=== PATIENT | female | born 1955 | race Caucasian/White ===

== ENCOUNTER 2023-01-28 18:32 | Day surgery (SDC) | payer MEDICARE, MEDICAID, SELFPAY ==
[2023-01-23 13:35] VITALS: BMI 32.6
--- NOTE | 2023-01-27 12:11 | HO.ANESPROP2 ---
Documented by User: Octavia Boggs NP 01/27/23 12:12 HPI - Anesthesia Eval Consult details Narrative: 67yo F for Left medial rectus Eye Muscle Recession PCP cleared *Multiple Med Allergies* PMFSH Past Medical History Medical History (Updated 01/23/23 @ 13:08 by Rupal Smith, RN) Anxiety disorder Asthma Chronic sinusitis Dependent on walker for ambulation Depression DM type 2 (diabetes mellitus, type 2) Essential tremor GERD (gastroesophageal reflux disease) HTN (hypertension) Hyperlipidemia Hypothyroid Obesity Rosacea TIA (transient ischemic attack) Surgical History Surgical History (Updated 01/23/23 @ 13:08 by Rupal Smith, SHREE) History of sinus surgery Hx of adenoidectomy Social History Social History Patient Tobacco Use Status: Never used Tobacco Are you DNR?: No Advance Directives: No Advance Directives Information Provided: Yes (HCP) Advance Directives on File: No Recently lost weight without trying: No Eating poorly because of decreased appetite: No Patient : No Meds Allergies Allergy/AdvReac Type Severity Reaction Status Date / Time Sulfa (Sulfonamide Allergy Mild HIVES Verified 01/28/23 13:35 Antibiotics) [SULFA(SULFONAMIDE ANTIBIOTICS)] doxycycline [DOXYCYCLINE] Allergy Unknown UNKNOWN Verified 01/28/23 13:35 erythromycin base Allergy Unknown UNKNOWN Verified 01/28/23 13:35 [From ERYTHROCIN] fexofenadine [From MELL] Allergy Unknown UNKNOWN Verified 01/28/23 13:35 gabapentin [From NEURONTIN] Allergy Unknown sedation Verified 01/28/23 13:35 metoclopramide [From REGLAN] Allergy Unknown tremors Verified 01/28/23 13:35 risperidone [From RISPERDAL] Allergy Unknown UNKNOWN Verified 01/28/23 13:35 aripiprazole [From Abilify] Allergy Excessively Verified 01/23/23 13:12 energized cariprazine [From Vraylar] Allergy Elevated Verified 01/23/23 13:12 Blood Sugar Levels fluoxetine Allergy sedation Verified 01/23/23 13:12 pseudoephedrine Allergy Unknown Verified 01/23/23 13:12 [From Mell-D] Home Medications Medication Instructions Recorded Confirmed Last Taken Type albuterol sulfate 90 mcg/actuation 2 puff inhalation QID PRN wheezing 01/23/23 01/23/23 Unknown History aerosol inhaler (Ventolin HFA) amlodipine 5 mg tablet 1 tab PO DAILY 01/23/23 01/23/23 01/28/23 History aspirin 81 mg tablet,delayed 1 tab PO DAILY 01/23/23 01/23/23 Unknown History release atorvastatin 20 mg tablet 1 tab PO DAILY 01/23/23 01/23/23 Unknown History biotin 1 mg tablet 1 tab PO DAILY 01/23/23 01/23/23 Unknown History cetirizine 10 mg tablet 1 tab PO DAILY PRN sinusitis 01/23/23 01/23/23 Unknown History clonazepam 0.5 mg tablet 1 tab PO BID PRN anxiety 01/23/23 01/23/23 01/28/23 History fluticasone propionate 50 2 spray intranasal DAILY 01/23/23 01/23/23 Unknown History mcg/actuation nasal spray,suspension glipizide 2.5 mg tablet, extended 1 - 2 tab PO DAILY 01/23/23 01/23/23 Unknown History release 24 hr ketoprofen 75 mg capsule 75 mg PO BID 01/23/23 01/23/23 Unknown History levomilnacipran 120 mg capsule,24 1 cap PO QAM 01/23/23 01/23/23 Unknown History hr,extended release (Fetzima) levothyroxine 75 mcg tablet 1 tab PO DAILY 01/23/23 01/23/23 01/28/23 History lisinopril 20 mg tablet 1 tab PO DAILY 01/23/23 01/23/23 Unknown History metformin 500 mg tablet,extended 2 tab PO BID 01/23/23 01/23/23 Unknown History release 24 hr montelukast 10 mg tablet 1 tab PO DAILY 01/23/23 01/23/23 Unknown History omeprazole 20 mg capsule,delayed 1 cap PO DAILY 01/23/23 01/23/23 Unknown History release topiramate 50 mg tablet 1 tab PO BID 01/23/23 01/23/23 01/28/23 History triamcinolone acetonide 0.1 % appl topical TID PRN itch 01/23/23 Unknown History topical cream Exam Exam Date and Time: January 27, 2023 121 Height,Weight and Vital Signs: Height 5 ft 3 in Weight 83.54 kg Assessment and Plan Assessment Anesthesia Assessment: Chart Reviewed Documented by User: Tatyana Schmidt MD 01/28/23 15:29 PMFSH Past Medical History Medical History (Updated 01/23/23 @ 13:08 by Rupal Smith, RN) Anxiety disorder Asthma Chronic sinusitis Dependent on walker for ambulation Depression DM type 2 (diabetes mellitus, type 2) Essential tremor GERD (gastroesophageal reflux disease) HTN (hypertension) Hyperlipidemia Hypothyroid Obesity Rosacea TIA (transient ischemic attack) Family History Family history of problems with anesthesia: No Surgical History Surgical History (Updated 01/23/23 @ 13:08 by Rupal Smith, SHREE) History of sinus surgery Hx of adenoidectomy History of Problems with Anesthesia: No Social History Social History Patient Tobacco Use Status: Never used Tobacco Are you DNR?: No Advance Directives: No Advance Directives Information Provided: Yes (HCP) Advance Directives on File: No Recently lost weight without trying: No Eating poorly because of decreased appetite: No Patient : No Meds Allergies Allergy/AdvReac Type Severity Reaction Status Date / Time Sulfa (Sulfonamide Allergy Mild HIVES Verified 01/28/23 13:35 Antibiotics) [SULFA(SULFONAMIDE ANTIBIOTICS)] doxycycline [DOXYCYCLINE] Allergy Unknown UNKNOWN Verified 01/28/23 13:35 erythromycin base Allergy Unknown UNKNOWN Verified 01/28/23 13:35 [From ERYTHROCIN] fexofenadine [From MELL] Allergy Unknown UNKNOWN Verified 01/28/23 13:35 gabapentin [From NEURONTIN] Allergy Unknown sedation Verified 01/28/23 13:35 metoclopramide [From REGLAN] Allergy Unknown tremors Verified 01/28/23 13:35 risperidone [From RISPERDAL] Allergy Unknown UNKNOWN Verified 01/28/23 13:35 aripiprazole [From Abilify] Allergy Excessively Verified 01/23/23 13:12 energized cariprazine [From Vraylar] Allergy Elevated Verified 01/23/23 13:12 Blood Sugar Levels fluoxetine Allergy sedation Verified 01/23/23 13:12 pseudoephedrine Allergy Unknown Verified 01/23/23 13:12 [From Mell-D] Home Medications Medication Instructions Recorded Confirmed Last Taken Type albuterol sulfate 90 mcg/actuation 2 puff inhalation QID PRN wheezing 01/23/23 01/23/23 Unknown History aerosol inhaler (Ventolin HFA) amlodipine 5 mg tablet 1 tab PO DAILY 01/23/23 01/23/23 01/28/23 History aspirin 81 mg tablet,delayed 1 tab PO DAILY 01/23/23 01/23/23 Unknown History release atorvastatin 20 mg tablet 1 tab PO DAILY 01/23/23 01/23/23 Unknown History biotin 1 mg tablet 1 tab PO DAILY 01/23/23 01/23/23 Unknown History cetirizine 10 mg tablet 1 tab PO DAILY PRN sinusitis 01/23/23 01/23/23 Unknown History clonazepam 0.5 mg tablet 1 tab PO BID PRN anxiety 01/23/23 01/23/23 01/28/23 History fluticasone propionate 50 2 spray intranasal DAILY 01/23/23 01/23/23 Unknown History mcg/actuation nasal spray,suspension glipizide 2.5 mg tablet, extended 1 - 2 tab PO DAILY 01/23/23 01/23/23 Unknown History release 24 hr ketoprofen 75 mg capsule 75 mg PO BID 01/23/23 01/23/23 Unknown History levomilnacipran 120 mg capsule,24 1 cap PO QAM 01/23/23 01/23/23 Unknown History hr,extended release (Fetzima) levothyroxine 75 mcg tablet 1 tab PO DAILY 01/23/23 01/23/23 01/28/23 History lisinopril 20 mg tablet 1 tab PO DAILY 01/23/23 01/23/23 Unknown History metformin 500 mg tablet,extended 2 tab PO BID 01/23/23 01/23/23 Unknown History release 24 hr montelukast 10 mg tablet 1 tab PO DAILY 01/23/23 01/23/23 Unknown History omeprazole 20 mg capsule,delayed 1 cap PO DAILY 01/23/23 01/23/23 Unknown History release topiramate 50 mg tablet 1 tab PO BID 01/23/23 01/23/23 01/28/23 History triamcinolone acetonide 0.1 % appl topical TID PRN itch 01/23/23 Unknown History topical cream Exam Airway Mallampati Class: III TM Dist: >3cm Neck ROM: Full Loose/Missing/Broken Teeth: Yes, Upper and Lower Assessment and Plan Assessment Anesthesia Assessment: Anesthesia Plan Discussed Final Anesthetic Review Family History of Problems with Anesthesia: No History of Problems with Anesthesia: No NPO: Yes ASA Class: III Final Preanesthetic Review: No Changes in Pt Med Stat, Meds/Allgs Chart Reviewed, Consent Obtained/Reviewed and Anes Risks/Benef Reviewed Patient Risk: Intermediate Procedure Risk: Low Anesthetic Plan Anesthetic Plan: GA Disposition: Standard PACU
[2023-01-28 13:40] VITALS: BP 106/69; PULSE 121; RESP 16; TEMP 37.1; O2SAT 96
[2023-01-28] MEDS: Lactated Ringers 1,000 ML 100 ML IVCONT (14:18)
[2023-01-28 14:39] LABS: Glucose, Whole Blood 142 mg/dL (60-115)
--- NOTE | 2023-01-28 16:08 | HO.OPHTHAL ---
Ophthalmology Operative Note Date of Service: 01/28/23 Narrative: Diagnosis esotropia. Procedure recession of left medial rectus muscle [address] Chatman. Anesthesia general. Complications none. The patient was brought to the operating room and placed under general anesthesia. The left eye was prepped and draped in the usual sterile ophthalmic fashion. A lid speculum was placed in the eye and a pretty was created around the medial rectus muscle about 5 mm back from the limbus. The muscle was hooked and secured with a double-armed Vicryl suture. It was reattached to a position 4 mm behind the original insertion. Conjunctiva was closed with interrupted Vicryl sutures. The patient was then awoken from general anesthesia and discharged to postoperative recovery in good condition.
[2023-01-28 16:26] VITALS: BP 148/96; PULSE 98; RESP 16; TEMP 36.8; O2SAT 100
[2023-01-28 16:31] VITALS: BP 142/78; PULSE 92; RESP 16; O2SAT 96
[2023-01-28 16:36] VITALS: BP 145/80; PULSE 93; RESP 16; O2SAT 96
[2023-01-28 16:41] VITALS: BP 133/91; PULSE 96; RESP 18; TEMP 36.4; O2SAT 97
[2023-01-28 16:55] VITALS: BP 132/95; PULSE 94; RESP 18; O2SAT 96
== END 2023-01-28 18:39 | disposition home or self-care (01) ==
LOC: HO.SSS 18:33
PROVIDERS: PCP Internal Medicine; Visit Provider Ophthalmology
PROC: (CPT 67311; principal; 2023-01-28 15:40)
DX: H51.8 Other specified disorders of binocular movement (principal); R25.1 Tremor, unspecified; I10 Essential (primary) hypertension; J45.909 Unspecified asthma, uncomplicated; E11.9 Type 2 diabetes mellitus without complications; Z79.84 Long term (current) use of oral hypoglycemic drugs; Z79.51 Long term (current) use of inhaled steroids; Z79.82 Long term (current) use of aspirin; Z99.89 Dependence on other enabling machines and devices; Z86.73 Personal history of transient ischemic attack (TIA), and cerebral infarction without residual deficits; Z88.1 Allergy status to other antibiotic agents; Z88.2 Allergy status to sulfonamides; Z88.8 Allergy status to other drugs, medicaments and biological substances
CPT/HCPCS: 67311; 82947; J2250